=== PATIENT | male | born 1990 | race Hispanic/Latino ===

== ENCOUNTER 2018-02-26 19:25 | Emergency (ER) | payer SELFPAY ==
[2018-02-26 19:38] VITALS: BP 142/84; PULSE 90; RESP 16; TEMP 98.6; O2SAT 97
[2018-02-26] MEDS ORDERED: Lidocaine 1% (10 ml) Inj INFIL STA (19:45)
[2018-02-26] MEDS ORDERED: Lidocaine 1% Inj (20ml) ONE (19:46)
[2018-02-26] MEDS ORDERED: Bacitracin 500 Units/gm Oint Foilpak UD ONE (20:33)
--- NOTE | 2018-02-26 20:43 | ED PDOC ---
HPI: General Adult Time Seen by Provider: 02/26/18 19:37 Chief Complaint (Nursing): Abnormal Skin Integrity Chief Complaint (Provider): Facial laceration History Per: Patient History/Exam Limitations: no limitations Onset/Duration Of Symptoms: Mins Have you had recent travel within the past 21 days to any of the following countries: [place], [place], [place] or [place]?: No Current Symptoms Are (Timing): Still Present Additional Complaint(s): 27 yo male with no medical problems presents with right facial laceration. Pt states that he was elbowed in the face while playing basketball. No LOC. No dizziness. No headache. PT reports tetanus UTD. Past Medical History Reviewed: Historical Data, Nursing Documentation, Vital Signs Vital Signs: Last Vital Signs Temp 98.6 F 02/26/18 19:35 Pulse 90 02/26/18 19:35 Resp 16 02/26/18 19:35 BP 142/84 02/26/18 19:35 Pulse Ox 97 02/26/18 19:35 - Medical History PMH: No Chronic Diseases - Surgical History Surgical History: No Surg Hx - Family History Family History: States: No Known Family Hx - Living Arrangements Living Arrangements: With Family - Social History Current smoker - smoking cessation education provided: No Alcohol: Occasional - Allergies Allergies/Adverse Reactions: Allergies Allergy/AdvReac Type Severity Reaction Status Date / Time No Known Allergies Allergy Verified 02/26/18 19:38 Review of Systems ROS Statement: Except As Marked, All Systems Reviewed And Found Negative Constitutional: Negative for: Fever, Chills Skin: Positive for: Other Physical Exam - Reviewed Nursing Documentation Reviewed: Yes Vital Signs Reviewed: Yes - Physical Exam Appears: Positive for: Well, Non-toxic, No Acute Distress Head Exam: Positive for: ATRAUMATIC, NORMAL INSPECTION, NORMOCEPHALIC Skin: Positive for: Warm. Negative for: Normal Color (2 cm laceration of the left cheek, mild bleeding ) Eye Exam: Positive for: Normal appearance, EOMI, PERRL ENT: Positive for: Normal ENT Inspection Neck: Positive for: Normal, Painless ROM Respiratory: Negative for: Accessory Muscle Use, Respiratory Distress Back: Positive for: Normal Inspection Extremity: Positive for: Normal ROM Neurologic/Psych: Positive for: Alert, Oriented, Gait. Negative for: Aphasia, Facial Droop - ECG O2 Sat by Pulse Oximetry: 97 Procedures - Laceration/Wound Repair Left cheek Wound Length (cm): 2 Wound's Depth, Shape: superficial Wound Explored: clean Betadine Prep?: No Anesthesia: 1% Lidocaine Wound Repaired With: Sutures Suture Size/Type: 6:0 Layer Closure?: No Deep Layer Suture Size/Type: gut Wound Complexity: Simple Disposition - Clinical Impression Clinical Impression: Laceration of cheek, right Counseled Patient/Family Regarding: Studies Performed, Diagnosis, Need For Followup - Disposition Disposition: Routine/Home Disposition Time: 20:36 Condition: STABLE Instructions: Laceration Repair With Stitches (DC)
== END 2018-02-26 20:57 | disposition home or self-care (01) ==
LOC: H.ER 19:25
DX: S01.411A Laceration without foreign body of right cheek and temporomandibular area, initial encounter (principal); W50.0XXA Accidental hit or strike by another person, initial encounter; Y93.67 Activity, basketball